=== PATIENT | female | born 1980 | race Caucasian/White ===

== ENCOUNTER 2021-09-22 18:52 | Emergency (ER) | payer OTHER ==
[~2021-09-22] VITALS: Ht 160 cm; Wt 86.4 kg
[2021-09-22] MEDS ORDERED: RIFA200T2 PO (18:54)
[2021-09-22] MEDS ORDERED: AMOX TR/POT CLAV 875 MG/125 MG TABLET PO ONE (20:15)
[2021-09-22] MEDS ORDERED: KETOROLAC TROMETHAMINE 10 MG TABLET PO ONE (20:15)
[2021-09-22] MEDS ORDERED: PERTUSS(ACELL),DIPH,TET VAC/PF 0.5 ML SYRINGE IM. ONE (20:15)
[2021-09-22] MEDS ORDERED: AMOX1TAB16 PO (21:02)
[2021-09-22 21:07] VITALS: BP 145/80
== END 2021-09-22 21:19 | disposition home or self-care (01) ==
LOC: EMS 18:52
DX: S41.131A Puncture wound without foreign body of right upper arm, initial encounter (principal); Z79.899 Other long term (current) drug therapy; W54.0XXA Bitten by dog, initial encounter; Y93.89 Activity, other specified; Y92.89 Other specified places as the place of occurrence of the external cause; Y99.8 Other external cause status
CPT/HCPCS: 90471; 90715; 99283

== ENCOUNTER 2023-11-12 10:08 | Emergency (ER) | payer OTHER ==
[~2023-11-12] VITALS: Ht 160 cm; Wt 79.5 kg
[~2023-11-12 10:08] MED LIST: AMOX-457 PO; RIFA200T2 PO
[2023-11-12 10:13] VITALS: TEMP 98
[2023-11-12 11:05] LABS: APPEARANCE,URINE CLEAR (CLEAR); BILIRUBIN,URINE NEGATIVE (NEGATIVE); COLOR,URINE COLORLESS (YELLOW); GLUCOSE, URINE (UA) NEGATIVE (NEGATIVE); KETONES,URINE NEGATIVE (NEGATIVE); LEUKOCYTE ESTERASE ,URINE NEGATIVE (NEGATIVE); NITRATE,URINE NEGATIVE (NEGATIVE); OCCULT BLOOD,URINE TRACE (NEGATIVE); PH,URINE 6.5 (5.0-8.0); PROTEIN,URINE NEGATIVE (NEGATIVE); SPECIFIC GRAVITIY, URINE 1.006 (1.003-1.030); UROBILINOGEN,URINE <=1.0 mg/dL (<=1.0)
[2023-11-12 11:09] LABS: BACTERIA,URINE None Seen /HPF (None Seen); RBC,URINE 0-2 /HPF (0-2); SQUAMOUS EPITHELIAL CELL,UR Rare /LPF (None Seen); WBC,URINE None Seen /HPF (0-5)
[2023-11-12] MEDS: ONDANSETRON HCL 4 MG/2 ML VIAL IVP ONE (12:15)
[2023-11-12] MEDS: ACETAMINOPHEN 500 MG TABLET PO ONE (12:15)
[2023-11-12 12:43] LABS: BASOPHILS % (AUTO) 0.4 % (0.0-2.0); EOSINOPHILS % (AUTO) 0.2 % (1.0-6.0); HEMATOCRIT 38.8 % (36-46); HEMOGLOBIN 12.8 g/dL (12.0-16.0); LYMPHOCYTES # (AUTO) 2.8 K/uL (1.0-4.8); LYMPHOCYTES % (AUTO) 41.4 % (22.0-44.0); MEAN CORPUSCULAR HEMOGLOBIN 30.3 pg (26.0-34.0); MEAN CORPUSCULAR HGB CONC 32.9 G/dL (31.0-37.0); MEAN CORPUSCULAR VOLUME 92 fL (80-100); MONOCYTES # (AUTO) 0.5 K/uL (0.1-1.0); MONOCYTES % (AUTO) 7.7 % (2.0-9.0); NEUTROPHILS # (AUTO) 3.3 K/uL (1.8-7.7); NEUTROPHILS % (AUTO) 50.3 % (40.0-70.0); PLATELET COUNT (AUTO) 298 K/uL (150-450); RED BLOOD CELL COUNT(AUTO) 4.22 MIL/uL (4.00-5.20); RED CELL DISTRIBUTION WIDTH 13.4 % (11.5-14.5); WHITE BLOOD COUNT (AUTO) 6.6 K/uL (4.5-11.0)
[2023-11-12 12:53] LABS: ANION GAP 10 mmol/L (8-16); CALCIUM, TOTAL 8.6 mg/dL (8.8-10.5); CARBON DIOXIDE 25 mmol/L (22-29); CHLORIDE 102 mmol/L (98-107); CREATININE 0.75 mg/dL (0.60-1.30); GLOMERULAR FILTR. RATE CALC > 60 mL/min (>60); GLUCOSE,RANDOM 88 mg/dL (70-110); SODIUM SERUM 137 mmol/L (136-145); UREA NITROGEN, BLOOD 7 mg/dL (7-18)
[2023-11-12] MEDS: KETOROLAC TROMETHAMINE 30 MG/ML VIAL IVP ONE (13:18)
[2023-11-12] MEDS ORDERED: BACL10TA PO (13:26)
[2023-11-12] MEDS ORDERED: IBUP-1492 PO (13:55)
[2023-11-12 14:00] VITALS: BP 143/72; PULSE 82; RESP 16; O2SAT 98
== END 2023-11-12 14:09 | disposition home or self-care (01) ==
LOC: EMS 10:08
DX: M54.50 Low back pain, unspecified (principal); R30.0 Dysuria
CPT/HCPCS: 99285; 74176; 96374; 96375; 80048; 81001; 84703; 85025; 36415; J1885; J2405

== ENCOUNTER 2024-06-04 09:15 | Emergency (ER) | payer OTHER ==
[~2024-06-04] VITALS: Ht 160 cm; Wt 79.5 kg
[~2024-06-04 09:15] MED LIST changes: -AMOX-457 PO; +BACL10TA PO; +IBUP-1492 PO; -RIFA200T2 PO
[2024-06-04 09:47] LABS: COVID AG,FIA SOURCE NASAL SWAB
[2024-06-04 09:59] LABS: RAPID GROUP A STREP NEGATIVE (NEGATIVE)
[2024-06-04 10:08] LABS: INFLUENZA TYPE A NEGATIVE FOR TYPE A (NEGATIVE); INFLUENZA TYPE B NEGATIVE FOR TYPE B (NEGATIVE); SARS-COV2 (COVID) ANTIGEN,FIA Negative (Negative)
[2024-06-04] MEDS ORDERED: IBUP-1492 PO (11:47)
[2024-06-04] MEDS ORDERED: AMOX500C2 PO (11:47)
[2024-06-04] MEDS: AMOXICILLIN TRIHYDRATE 250 MG CAPSULE PO ONE (11:59)
[2024-06-04] MEDS: IBUPROFEN 600 MG TABLET PO ONE (11:59)
[2024-06-04 12:01] VITALS: BP 137/86; PULSE 77; RESP 18; TEMP 98.1; O2SAT 96
== END 2024-06-04 12:10 | disposition home or self-care (01) ==
LOC: EMS 09:25
DX: H66.93 Otitis media, unspecified, bilateral (principal); J02.9 Acute pharyngitis, unspecified; R06.02 Shortness of breath; R51.9 Headache, unspecified; E78.5 Hyperlipidemia, unspecified; Z20.822 Contact with and (suspected) exposure to COVID-19
CPT/HCPCS: 87430; 87804; 99283